=== PATIENT | male | born 1955 | race Caucasian/White ===

== ENCOUNTER 2018-06-12 18:07 | Emergency (ER) | payer OTHER ==
[~2018-06-12] VITALS: Ht 182.9 cm; Wt 100.0 kg
[~2018-06-12 18:07] MED LIST: AMOXICILLIN500 MG PO; HYDROCHLOR12.5 MG/CA PO; LISINOPRIL10 MG PO; LISINOPRIL20 MG PO; LOVASTATIN20 MG PO
--- NOTE | 2018-06-12 18:20 | NUR ---
RT CCALLED TO THE ER. PATIENT BEING AMBUING WITH 100% WITH LMA TUBE IN PLACE. ABG DRAWN AND ANALYSED. RESULT ON [employer]. MD ORDERED TO TAKE OUT THE TUBE AND PLACE THE PATIENT ON OXYGEN 50% VENTI MASK. SPO2 WAS 93% AND THEN KEPT GOING DOWN UNTIL REACH 70'S. ABG ORDERED, DRAWN AND ANALYSED. RESULT ON [employer]. MD DECIDED TO TUBE THE PATIENT AND WAS PLACED ON VENTILATOR WITH RATE OF 20, VT 600, 100% FIO2 WITH 7 PEEP. BECAUSE OF LOW SPO2 INCREASE TO 10.
[2018-06-12 18:30] LABS: HEMATOCRIT 46.5 % (39.0-50.0); HEMOGLOBIN 15.6 g/dl (14.0-18.0); IMMATURE GRANULOCYTES 1.9 % (0.0-5.0); MEAN CELL VOLUME 87.6 fL CALC (80.0-100.0); MEAN CORPUSCULAR HGB 29.4 pG CALC (26.0-32.0); MEAN CORPUSCULAR HGB CONC 33.5 g/L CALC (32.0-36.0); NEUT# 8.64 thou/uL (1.82-7.42); RED BLOOD COUNT 5.31 mill/uL (4.70-6.10); RED CELL DISTRI WIDTH 14.1 % (11.5-15.5)
[2018-06-12 18:41] LABS: ALBUMIN 4.5 g/dL (3.2-5.0); ALKALINE PHOSPHATASE 69 u/l (38-126); ANION GAP 24 (6-22 (CALC)); BILIRUBIN, TOTAL 1.4 mg/dL (0.0-1.4); BUN 26 mg/dL (8-23); BUN/CREATININE RATIO 23 (12-20 (CALC)); CARBON DIOXIDE 17 mmol/l (22-30); CHLORIDE 108 mmol/l (95-108); CREATININE 1.2 mg/dL (0.7-1.3); GFR > 60 ML/MIN (>=60 (CALC)); GFR FOR AFR.AMER. > 60 ML/MIN (>=60 (CALC)); SGOT/AST 100 u/l (19-48); SGPT/ALT 83 u/l (11-66); SODIUM 144 mmol/l (137-146); TOTAL PROTEIN 7.1 g/dL (6.3-8.2)
[2018-06-12 21:22] LABS: URINE BILIRUBIN - DIPSTICK NEGATIVE (NEGATIVE); URINE BLOOD DIPSTICK MODERATE (NEGATIVE); URINE COLOR YELLOW; URINE GLUCOSE - DIPSTICK 100 mg/dL (NEGATIVE); URINE KETONE NEGATIVE (NEGATIVE); URINE LEUK ESTERASE NEGATIVE (NEGATIVE); URINE NITRITE - DIPSTICK NEGATIVE (Negative); URINE PH 5.5 (4.5-8.0); URINE PROTEIN - DIPSTICK >=300 mg/dL (NEG-TRACE); URINE SPECIFIC GRAVITY >=1.030; URINE UROBILINOGEN - DIPSTICK 0.2 E.U./dL (0.2)
[2018-06-12 21:24] LABS: URINE CLARITY SL CLOUDY
[2018-06-12 21:33] LABS: URINE SPERM MANY hpf (NONE-RARE); URINE TRANSITIONAL EPI. CELLS RARE hpf
[2018-06-12 22:55] VITALS: BP 174/110
== END 2018-06-12 23:34 | disposition short-term general hospital (02) | DRG 871 ==
LOC: EDBD 18:07 → ED 18:07
PROVIDERS: Emergency Medicine
PROC: 0BH17EZ Insertion of Endotracheal Airway into Trachea, Via Natural or Artificial Opening (ICD-10-PCS; principal; 2018-06-12)
DX: A41.9 Sepsis, unspecified organism (principal); I49.01 Ventricular fibrillation; I47.2 Ventricular tachycardia; J18.9 Pneumonia, unspecified organism; I46.9 Cardiac arrest, cause unspecified; I10 Essential (primary) hypertension
CPT/HCPCS: J0282; Q9967